=== PATIENT | male | born 1950 | race Caucasian/White ===

== ENCOUNTER → 2017-10-07 09:08 | Outpatient (CLI) | payer OTHER | END | disposition home or self-care (01) | LOC: D.CT 09:08 | DX: I73.9 Peripheral vascular disease, unspecified (principal) ==

== ENCOUNTER 2017-12-30 05:41 | Outpatient (CLI) | payer OTHER ==
[~2017-12-30] VITALS: Ht 175.3 cm; Wt 95.0 kg
--- NOTE | ~2017-12-30 | HEMODYNAMI ---
PATIENT:GERARDO MORALEZ MEDICAL RECORD: [id number] : 50 [id number] ADMISSION DATE: 12/30/17 Generatedon:12/30/201716:10 Patient name: GERARDO MORALEZ Patient #: [id number] SSN: : 1950 Date of study: 12/30/2017 Page: Of Hemodynamic Procedure Report Patient Data Patient Demographics Procedure consent was obtained First Name: GERARDO Gender: Male Last Name: KIRT : 1950 Patient #: [id number] Age: 67 year(s) Race: Unknown Additional ID: [id number] Contact details Address: [address] [place] [address] State: [place] City: [place] Zip code: [address] Past Medical History Allergies Allergen Reaction Date Comments Reported Other allergy 12/30/2017 Kai Inhipitors Admission Admission Data Admission Date: 12/30/2017 Admission Time: 5:41 Procedure Procedure Types Cath Procedure Peripheral Cath Diagnostic Procedure Miscellaneous Procedure Description Procedure Date Procedure Date: 12/30/2017 Procedure Start Time: 8:50 Procedure Staff Name Function Farhad Macario RT Monitor Brendon Ortega MD Performing Physician Chantel Pereira Scrub Taylor Barton RN Nurse Procedure Data Cath Procedure Fluoroscopy Diagnostic fluoroscopy Total fluoroscopy Time: time: 40.4 min 40.4 min Diagnostic fluoroscopy Total fluoroscopy dose: dose: 2298.8 mGy 2298.8 mGy Contrast Material Contrast Material Type Amount (ml) Isovue 300 225 Entry Location Entry Primary Successful Side Size Upsize Upsize Entry Closure Succes sful Closure Location (Fr) 1 (Fr) 2 (Fr) Remarks Device Remarks Femoral Right 5 Fr Exoseal artery Diagnostic catheters Device Type Used For End Catheter Placement Angiodynamics SOS OMNI 2 NON B 5FR 65CM catheter ([id number]) Merit ULTRA BOLUS FLUSH 5Fr 65CM catheter ([id number]) Merit 5Fr Mikaless catheter ([id number]) Procedure Medications Medication Administration Route Dosage Oxygen etCO2 Nasal cannula 4 l/min Lidocaine 1% added to field 20 Heparin Flush Bag added to field 3 bags (1000units/500ml NS) Versed I.V. 2 mg Fentanyl I.V. 50 mcg Fentanyl I.V. 50 mcg Versed I.V. 1 mg Fentanyl I.V. 50 mcg Versed I.V. 1 mg Fentanyl I.V. 50 mcg Versed I.V. 1 mg Fentanyl I.V. 50 mcg Hemodynamics Rest Heart Rate: 58 (bpm) Snapshots Pre Cath Intra NCS Post Cath Vital Signs Time Heart Resp SPO2 etCO2 NIBP (mmHg) Rhythm Pain Sedation Rate (ipm) (%) (mmHg) Status Level (bpm) 8:27:15 53 8 36.1 161/83(137) SB 0 (11) 10(A) , No pain 8:31:31 55 12 97 39.8 152/84(140) SB 0 (11) 9(A) , No pain 8:35:49 52 17 98 33.1 152/88(135) SB 0 (11) 9(A) , No pain 8:40:07 56 14 98 34.6 151/82(133) SB 0 (11) 9(A) , No pain 8:44:25 54 14 98 30.8 157/80(134) SB 0 (11) 9(A) , No pain 8:48:45 56 14 98 36.1 149/81(133) SB 0 (11) 9(A) , No pain 8:53:04 59 15 98 39.1 152/81(130) SB 0 (11) 8(A) , No pain 8:57:18 60 9 98 38.3 163/95(133) NSR 0 (11) 8(A) , No pain 9:01:36 59 9 97 35.3 156/82(133) SB 0 (11) 8(A) , No pain 9:06:33 57 9 98 43.6 155/85(134) SB 0 (11) 8(A) , No pain 9:10:47 58 98 45.1 148/81(130) SB 0 (11) 8(A) , No pain 9:15:05 64 8 98 39.8 151/85(126) NSR 0 (11) 8(A) , No pain 9:19:23 64 10 94 39.1 150/89(124) NSR 0 (11) 8(A) , No pain 9:23:41 55 9 96 28.6 151/85(125) SB 0 (11) 8(A) , No pain 9:27:53 56 7 99 45.1 133/73(112) SB 0 (11) 8(A) , No pain 9:32:07 60 12 98 43.6 139/76(119) NSR 0 (11) 8(A) , No pain 9:36:19 59 14 96 36.8 134/77(113) SB 0 (11) 8(A) , No pain 9:40:31 64 9 97 47.4 139/77(128) NSR 0 (11) 8(A) , No pain 9:44:45 56 8 97 40.6 154/87(130) SB 0 (11) 8(A) , No pain 9:49:03 57 8 99 42.9 149/84(126) SB 0 (11) 8(A) , No pain 9:53:21 53 9 99 40.6 157/86(125) SB 0 (11) 8(A) , No pain 9:57:37 54 8 99 39.1 151/91(138) SB 0 (11) 8(A) , No pain 10:01:55 54 9 99 43.6 158/85(138) SB 0 (11) 8(A) , No pain 10:06:54 53 9 99 38.3 159/89(136) SB 0 (11) 8(A) , No pain 10:11:14 55 10 98 27.1 153/83(136) SB 0 (11) 8(A) , No pain 10:16:13 53 10 98 40.6 Measuring SB 0 (11) 8(A) , No pain 10:16:17 55 10 98 40.6 155/84(128) SB 0 (11) 8(A) , No pain 10:21:16 54 16 99 33.9 Measuring SB 0 (11) 8(A) , No pain 10:21:28 59 17 98 33.9 152/80(142) SB 0 (11) 8(A) , No pain 10:25:45 54 10 100 39.9 146/82(125) SB 0 (11) 8(A) , No pain 10:30:03 54 7 99 39.8 149/71(130) SB 0 (11) 8(A) , No pain 10:34:21 53 10 97 36.1 159/76(136) SB 0 (11) 8(A) , No pain 10:39:20 54 12 99 33.9 Measuring SB 0 (11) 8(A) , No pain 10:39:30 58 8 98 0 142/75(131) SB 0 (11) 8(A) , No pain 10:43:44 55 6 96 19.5 158/89(110) SB 0 (11) 8(A) , No pain 10:48:43 53 5 93 0 Measuring SB 0 (11) 8(A) , No pain 10:48:55 54 5 95 0 156/90(149) SB 0 (11) 8(A) , No pain 10:53:16 55 6 95 0 147/76(127) SB 0 (11) 8(A) , No pain 10:58:15 56 7 96 0 Measuring SB 0 (11) 8(A) , No pain 10:59:22 53 9 97 28.6 150/83(131) SB 0 (11) 8(A) , No pain 11:04:21 49 7 94 36.8 Measuring SB 0 (11) 8(A) , No pain 11:04:27 49 6 96 36.8 166/89(133) SB 0 (11) 8(A) , No pain 11:08:52 56 8 97 42.9 155/85(144) SB 0 (11) 8(A) , No pain 11:13:12 51 7 98 42.1 155/85(138) SB 0 (11) 8(A) , No pain Medications Time Medication Route Dose Verified Delivered Reason Notes Effec tiveness by by 8:28:57 Oxygen etCO2 4 Brendon Vazquez Per Nasal l/min Mick Otrega RN protocol cannula 8:29:11 Lidocaine 1% added 20ml Brendon Olivas Per to vial Jordan Ortega MD protocol field REYEZ 8:29:28 Heparin Flush added 3 Brendon Olivas Per Bag to bags Jordan Ortega MD protocol (1000units/500ml field REYEZ NS) 8:50:41 Versed I.V. 2 mg Brendon Vazquez for Fully awake @ Mick Ortega RN sedation 8:56:58 8:50:51 Fentanyl I.V. 50 Brendon Jamesine for Fully awake @ ronna Mick Ortega RN sedation 8:57:01 8:56:55 Fentanyl I.V. 50 Brendon Vazquez for Mostl y ronna Mick Ortega RN sedation sleeping @ 8:59:50 9:18:37 Versed I.V. 1 mg Brendon Vazquez for Sedat ed @ Mick Ortega RN sedation 9:24:08 9:18:45 Fentanyl I.V. 50 Brendon Vazquez for Sedat ed @ Mick Arboleda RN sedation 9:24:05 9:34:13 Versed I.V. 1 mg Brendon Jamesine for Mostl y Mick Ortega RN sedation sleeping @ 9:39:43 9:34:24 Fentanyl I.V. 50 Brendon Jamesine for Mostl y Mick Arboleda RN sedation sleeping @ MD 9:39:40 10:31:50 Versed I.V. 1 mg Brendon Vazquez for Sedat ed @ Mick Ortega RN sedation 10:54:00 10:31:57 Fentanyl I.V. 50 Brendon Jamesine for Sedat ed @ Mick Arboleda RN sedation 10:53:57 Procedure Log Time Note 8:01:58 Farhad Macario RT (R) (CV) sent for patient. Start room use. 8:02:18 Time tracking: Regular hours (M-F 7:00 - 5:00) 8:02:24 Plan of Care:Hemodynamics will remain stable., Cardiac rhythm will remain stable., Comfort level will be maintained., Respiratory function will remain adequate., Patient/ family verbilizes understanding of procedure., Procedure tolerated without complication., Recovers from procedure without complications.. 8:02:34 Patient received from Outpatients to IR Alert and oriented. Tansferred to table in Supine position. 8:02:36 Correct patient and procedure confirmed by team. 8:02:38 Signed procedure consent form obtained from patient. 8:02:39 ECG and BP/O2 sat monitors applied to patient. 8:02:40 Full Disclosure recording started 8:02:43 - 8:02:45 H&P Date Dictated: 12/30/2017 H&P Addendum completed by physician on day of procedure. (MUST COMPLETE FOR ALL OUTPATIENTS). 8:02:46 Pre-procedure instructions explained to patient. 8:02:47 Pre-op teaching completed and patient verbalized understanding. 8:02:52 Family in waiting room. 8:02:54 Patient NPO since Midnight. 8:03:21 Patient allergic to Other allergyAce Inhipitors 8:03:31 Is the patient allergic to Iodine/contrast media? No. 8:03:46 Is patient on blood thinner?No 8:03:53 Patient diabetic? No. 8:03:56 - 8:03:57 ----Pre-sedation anethsthesia assessment.---- 8:03:59 Previous problem with sedation/anesthesia? No ? 8:04:01 Snore? Yes 8:04:03 Sleep apnea? No 8:04:06 Deviated septum? No 8:04:09 Opens mouth fully? Yes 8:04:12 Sticks out tongue? Yes 8:04:17 Airway obstruction? No ? 8:04:19 Dentures? No ? 8:26:15 Vital chart was started 8:28:57 Oxygen 4 l/min etCO2 Nasal cannula was administered by Taylor Barton RN; Per protocol; 8:29:11 Lidocaine 1% 20ml vial added to field was administered by Brendon Ortega MD; Per protocol; 8:29:28 Heparin Flush Bag (1000units/500ml NS) 3 bags added to field was administered by Brendon Ortega MD; Per protocol; 8:42:24 Pre procedure: right dorsailis pedis pulse Doppler 8:42:28 Pre procedure: left dorsailis pedis pulse Doppler 8:42:33 Pre procedure: right posterior tibial pulse Doppler 8:42:36 Pre procedure: left posterior tibial pulse Doppler 8:43:19 Patient pain scale 0/10 no pain. 8:43:36 IV patent on arrival in right forearm with 0.9% NaCl at [facility]. 8:43:39 Alarms reviewed by RPhilip N. 8:43:39 Sharps counted by scrub and verified by R.N. 8:48:21 Physician arrived 8:48:22 --------ALL STOP TIME OUT------ 8:48:23 Final Timeout: patient, procedure, and site verified with staff and physician. All members of the team are in agreement. 8:48:26 Left groin site verified by team. 8:49:03 Sedation plan: IV Moderate Sedation Medication:Versed, Fentanyl 8:49:50 Baseline sample Acquired. 8:50:10 Local anesthetic to left femerol artery with Lidocaine 1% by Brendon Ortega MD.INITIAL ACCESS ONLY 8:50:41 Versed 2 mg I.V. was administered by Taylor Barton RN; for sedation; 8:50:51 Fentanyl 50 mcg I.V. was administered by Taylor Barton RN; for sedation; 8:56:55 Fentanyl 50 mcg I.V. was administered by Taylor Barton RN; for sedation; 8:56:58 Effectiveness of Versed delivered @ 8:50:41 is: Fully awake 8:57:01 Effectiveness of Fentanyl delivered @ 8:50:51 is: Fully awake 8:57:49 A AngiodynamFresco Microchip SOS OMNI 2 NON B 5FR 65CM catheter ([id number]) was advanced over the wire and used for . 8:57:50 SHEATH 5FR Palacios (NOZ311) opened to sterile field. 8:57:51 DOC .035 wire (K03455) opened to sterile field. 8:57:51 Micropuncture VSI 4FR kit opened to sterile field. 8:58:04 A 5 Fr sheath was inserted into the Right Femoral artery 8:59:50 Effectiveness of Fentanyl delivered @ 8:56:55 is: Mostly sleeping 9:06:50 A [employer] ULTRA BOLUS FLUSH 5Fr 65CM catheter ([id number]) was advanced over the wire and used for . 9:18:37 Versed 1 mg I.V. was administered by Taylor Mick RN; for sedation; 9:18:45 Fentanyl 50 mcg I.V. was administered by Taylor Barton RN; for sedation; 9:21:17 GLIDE CATHETER 5FR COBRA 65cm (CG502) opened to sterile field. 9:21:48 GLIDE WIRE ANGLE 180cm (KU4072) opened to sterile field. 9:21:48 TORQUE DEVICE PLASTIC .038 ( TD01) opened to sterile field. 9:24:05 Effectiveness of Fentanyl delivered @ 9:18:45 is: Sedated 9:24:08 Effectiveness of Versed delivered @ 9:18:37 is: Sedated 9:28:10 A Merit 5Fr Mikaless catheter ([id number]) was advanced over the wire and used for . 9:34:13 Versed 1 mg I.V. was administered by Taylor Barton RN; for sedation; 9:34:24 Fentanyl 50 mcg I.V. was administered by Taylor Barton RN; for sedation; 9:34:44 GLIDE CATHETER 5FR AGARWAL 2 100cm (CG511) opened to sterile field. 9:39:40 Effectiveness of Fentanyl delivered @ 9:34:24 is: Mostly sleeping 9:39:43 Effectiveness of Versed delivered @ 9:34:13 is: Mostly sleeping 9:41:37 Angiodynamics Omniflush 5Fr 65cm ([id number]) opened to sterile field. 9:46:35 GLIDE CATHETER 5FR ANGLED 65cm (CG507) opened to sterile field. 10:31:50 Versed 1 mg I.V. was administered by Taylor Barton RN; for sedation; 10:31:57 Fentanyl 50 mcg I.V. was administered by Taylor Barton RN; for sedation; 10:44:40 FAMILY UPDATE 10:44:58 GLIDE WIRE GT DOUBLE ANGLE .018 ([id number]) opened to sterile field. 10:44:58 RENEGADE STAIGHT 150CM microcatheter ([id number]) opened to sterile field. 10:53:57 Effectiveness of Fentanyl delivered @ 10:31:57 is: Sedated 10:54:00 Effectiveness of Versed delivered @ 10:31:50 is: Sedated 10:58:33 EXOSEAL 5Fr (EX500) opened to sterile field. 11:00:18 Sheath removed intact; hemostasis achieved with Exoseal to the Right Femoral artery. 11:00:24 Procedure ended.(Physican Out) 11:00:28 Contrast amount:Isovue 300 225ml. 11:01:26 Fluoroscopy time 40.40 minutes. 11::33 Flurop Dose total: 2298.8 11::33 Fluoroscopy dose: 2298.8 mGy 11:01:36 Sharps counted by scrub and verified by R.N. 11:01:39 Insertion/operative site no bleeding no hematoma. 11:01:44 Post-op/insertion site Left Femoral artery dressed using a 4 x 4 and Tegaderm. 11:02:01 Post left femerol artery:stable 11:02:04 Post Procedure Pulses reassessed and unchanged 11:16:38 Post procedure instruction explained to patient.Patient verbalizes understanding. 11:16:39 Procedure and supply charges have been captured, reviewed, submitted an d are correct. 11:17:03 Report given to Outpatients. 11:17:12 Patient transfered to Outpatients with Stretcher. 11:17:48 Vital chart was stopped 11:17:53 Full Disclosure recording stopped Device Usage Item Name Manufacture Quantity Catalog Number Hospital Part Current M inimal Lot# / Charge Number Stock Stock Serial# Code Angiodynamics Angiodynamics 1 [id number] 970047 11356 066136 5 SOS OMNI 2 NON B 5FR 65CM catheter ([id number]) SHEATH 5FR Terumo 1 [id number] 082894 084637 225075 4 0 Palacios (VFQ533) Micropuncture VSI VASCULAR 1 7266V 563423 899969 5 VSI 4FR kit SOLUTIONS DOC .035 wire [employer] 1 [id number] 632113 497804 5 ([id number]) Hyper[employer]rapeutics ULTRA [employer] Medical 1 [id number] 902831 162959 5 BOLUS FLUSH 5Fr 65CM catheter ([id number]) GLIDE CATHETER Terumo 1 CG502 335228 237664 5 5FR COBRA 65cm (CG502) TORQUE DEVICE Farson 1 TD01 944175 016677 479720 5 PLASTIC .038 ( Scientific TD01) GLIDE WIRE Terumo 1 YK8706 655943 036543 249951 5 ANGLE 180cm (VK3336) Merit 5Fr [employer] Medical 1 763874 682441 408868 5 Mikaless catheter (564479) GLIDE CATHETER Terumo 1 CG511 259310 300798 5 5FR AGARWAL 2 100cm (CG511) Angiodynamics Angiodynamics 1 [id number] 502833 512576 976801 5 Omniflush 5Fr 65cm (28690346) GLIDE CATHETER Terumo 1 CG507 011752 686778 5 5FR ANGLED 65cm (CG507) RENEGADE Farson 1 [id number] 596205 103678 5 [id number] STAIGHT 150CM Scientific microcatheter ([id number]) GLIDE WIRE GT Terumo 1 [id number] 729604 979797 5 549559 DOUBLE ANGLE .018 (RG*[id number]) EXOSEAL 5Fr Cardinal 1 EX500 425713 006990 986121 1 0 [id number] (EX500) Health Signature Audit [place] Stage Time Signature Unsigned Intra-Procedure 12/30/2017 Farhad Churchield RT 11:17:44 AM Lynnetteield RT (R) (CV) 12/30/2017 (R) (CV) 4:00:14 PM Intra-Procedure 12/30/2017 Farhad 4:10:20 PM Shuffield RT (R) (CV) Signatures Monitor : Farhad Signature : Amirah RT Date : Time : [id number] [place] [address]
[2017-12-30 06:07] LABS: IMMATURE GRANULOCYTES 0.3 % (0-5)
[2017-12-30 06:19] LABS: CALC OSMOLALITY 282 mosm/kg (275-300); CALCIUM 8.5 mg/dL (8.5-10.1); CARBON DIOXIDE 25.4 mmol/L (21.0-32.0); CHLORIDE - SERUM 106 mmol/L (98-107); GLUCOSE 162 mg/dL (74-106); POTASSIUM - SERUM 4.4 mmol/L (3.5-5.1); SODIUM 140 mmol/L (136-145); UREA NITROGEN 13 mg/dL (7-18); eGFR NON AFRICAN AMERICAN 79 mL/min (90-120)
[2017-12-30] MEDS ORDERED: BAYER CHEWABLE81 MG PO (06:34)
[2017-12-30] MEDS ORDERED: ALEVE220 MG PO (06:35)
[2017-12-30] MEDS ORDERED: CENTRUM SILVER1 EACH PO (06:35)
[2017-12-30 06:36] LABS: APTT 31.3 SECONDS (22.8-39.4)
[2017-12-30] MEDS ORDERED: PRAVACHOL40 MG PO (06:36)
[2017-12-30] MEDS ORDERED: FISH OIL 1,0001 CA1 PO (06:36)
[2017-12-30 06:37] LABS: INR 0.91 (0.85-1.17); PROTIME 11.9 SECONDS (11.6-15.0)
[2017-12-30] MEDS ORDERED: TOPROL XL25 MG (06:37)
[2017-12-30] MEDS ORDERED: LISINOPRIL10 MG PO (06:38)
[2017-12-30] MEDS ORDERED: NORVASC10 MG PO (06:38)
[2017-12-30 06:51] VITALS: Ht 175.3 cm; Wt 95.0 kg
[2017-12-30 07:17] LABS: MEAN PLATELET VOLUME 9.5 fL (7.4-10.4)
[2017-12-30 07:22] LABS: HEMATOCRIT 40.6 % (42.0-54.0); MCV 87.9 fL (80.0-100.0); RBC 4.62 10x6/uL (4.20-6.10)
[2017-12-30 07:23] LABS: MCH 30.3 pg (26.0-34.0); MCHC 34.5 g/dL (31.0-37.0); PLATELET COUNT 256 10x3/uL (130-400); RDW 13.1 % (11.5-14.5)
[2017-12-30 07:24] LABS: EOSINOPHILS 5.5 % (0-7); LYMPHOCYTES 24.3 % (15-50); MONOCYTES 9.4 % (2-11); NEUTROPHILS 59.7 % (40-80)
== END 2017-12-30 15:30 | disposition home or self-care (01) ==
LOC: D.SP 05:41 → D.RAD 08:00 → D.SP 15:30
PROVIDERS: General Practice
DX: I71.4 Abdominal aortic aneurysm, without rupture (principal); K55.1 Chronic vascular disorders of intestine; I70.201 Unspecified atherosclerosis of native arteries of extremities, right leg; Z01.812 Encounter for preprocedural laboratory examination

== ENCOUNTER 2018-01-14 05:34 | Outpatient (CLI) | payer OTHER ==
[~2018-01-14] VITALS: Ht 175.3 cm; Wt 94.1 kg
--- NOTE | ~2018-01-14 | HEMODYNAMI ---
PATIENT:GERARDO MORALEZ MEDICAL RECORD: [id number] : 50 [id number] ADMISSION DATE: 01/14/18 Generatedon:01/14/201810:18 Patient name: GERARDO MORALEZ Patient #: [id number] SSN: : 1950 Date of study: 01/14/2018 Page: Of Hemodynamic Procedure Report Patient Data Patient Demographics Procedure consent was obtained First Name: GERRADO Gender: Male Last Name: KIRT : 1950 Patient #: [id number] Age: 67 year(s) Race: Unknown Additional ID: [id number] Contact details [address]: [address] [place] [address] State: [place] City: [place] Zip code: [address] Past Medical History Allergies Allergen Reaction Date Comments Reported Other allergy 12/30/2017 Kai Inhipitors Other allergy 01/14/2018 kai inhibitors Other allergy 01/14/2018 KAI INHIBITORS Admission Admission Data Admission Date: 01/14/2018 Admission Time: 5:34 Procedure Procedure Types Cath Procedure Peripheral Cath Diagnostic Procedure Abd/Extremity Extremities Procedure Description Procedure Date Procedure Date: 01/14/2018 Procedure Start Time: 8:45 Procedure Staff Name Function Brendon Ortega MD Performing Physician Farhad Macario RT Monitor Chantel Pereira Scrub Mili Miller RN Nurse Taylor Barton RN Nurse Procedure Data Cath Procedure Fluoroscopy Diagnostic fluoroscopy Total fluoroscopy Time: 8.1 time: 8.1 min min Diagnostic fluoroscopy Total fluoroscopy dose: 672 dose: 672 mGy mGy Contrast Material Contrast Material Type Amount (ml) Isovue 300 120 Entry Location Entry Primary Successful Side Size Upsize Upsize Entry Closure Succes sful Closure Location (Fr) 1 (Fr) 2 (Fr) Remarks Device Remarks Femoral Left 5 Fr artery Procedure Medications Medication Administration Route Dosage Oxygen etCO2 Nasal cannula 4 l/min Heparin Flush Bag added to field 3 bags (1000units/500ml NS) Lidocaine 1% added to field 20 Fentanyl I.V. 50 mcg Versed I.V. 2 mg Fentanyl I.V. 50 mcg Versed I.V. 1 mg Fentanyl I.V. 50 mcg Heparin Bolus I.V. 5000 units Versed I.V. 1 mg Fentanyl I.V. 50 mcg Hemodynamics Rest Heart Rate: 57 (bpm) Snapshots Pre Cath Intra NCS Post Cath Vital Signs Time Heart Resp SPO2 etCO2 NIBP (mmHg) Rhythm Pain Sedation Rate (ipm) (%) (mmHg) Status Level (bpm) 8:17:56 55 99 35.3 135/76(130) SB 0 (11) 10(A) , No pain 8:22:55 58 11 99 35.3 Measuring SB 0 (11) 9(A) , No pain 8:23:05 57 14 99 37.6 147/73(128) SB 0 (11) 9(A) , No pain 8:27:27 54 14 99 35.3 153/79(127) SB 0 (11) 9(A) , No pain 8:31:47 55 15 100 32.3 157/83(137) SB 0 (11) 9(A) , No pain 8:36:14 57 15 100 36.1 160/84(138) SB 0 (11) 9(A) , No pain 8:40:36 57 14 99 29.3 158/83(130) SB 0 (11) 9(A) , No pain 8:44:54 60 8 100 37.6 151/80(125) NSR 0 (11) 8(A) , No pain 8:49:14 68 11 98 38.3 151/87(122) NSR 0 (11) 8(A) , No pain 8:53:34 57 9 97 39.8 158/89(130) SB 0 (11) 8(A) , No pain 8:58:07 60 21 98 39.1 156/75(129) NSR 0 (11) 8(A) , No pain 9:02:29 53 21 97 39.1 156/79(127) SB 0 (11) 8(A) , No pain 9:06:51 57 7 97 42.9 158/83(119) SB 0 (11) 8(A) , No pain 9:11:19 62 8 95 33.8 152/79(107) NSR 0 (11) 8(A) , No pain 9:15:39 57 8 97 44.4 148/89(134) SB 0 (11) 8(A) , No pain 9:20:01 60 9 97 30 157/86(128) NSR 0 (11) 8(A) , No pain 9:25:01 61 10 99 40.6 Measuring NSR 0 (11) 8(A) , No pain 9:25:17 58 10 99 38.4 156/91(130) SB 0 (11) 8(A) , No pain 9:29:35 54 8 99 40.6 163/96(138) SB 0 (11) 8(A) , No pain 9:34:01 53 7 100 41.4 170/88(133) SB 0 (11) 8(A) , No pain 9:38:27 54 10 99 42.2 167/91(135) SB 0 (11) 8(A) , No pain 9:42:56 55 9 100 39.2 170/89(148) SB 0 (11) 8(A) , No pain 9:47:08 55 10 98 38.4 146/83(129) SB 0 (11) 8(A) , No pain 9:51:28 54 10 99 38.4 160/82(128) SB 0 (11) 8(A) , No pain 9:55:56 53 9 100 35.4 166/74(107) SB 0 (11) 8(A) , No pain 10:00:16 53 11 99 36.2 156/86(134) SB 0 (11) 8(A) , No pain 10:05:15 53 9 100 36.2 Measuring SB 0 (11) 8(A) , No pain 10:05:19 53 8 100 36.2 157/92(133) SB 0 (11) 8(A) , No pain 10:09:42 54 12 98 34.6 161/93(146) SB 0 (11) 8(A) , No pain 10:14:06 54 13 96 36.2 163/84(148) SB 0 (11) 8(A) , No pain Medications Time Medication Route Dose Verified Delivered Reason Notes Effec tiveness by by 8:21:31 Oxygen etCO2 4 Brendon Vazquez Per Nasal l/min Mick Ortega RN protocol cannula 8:21:49 Heparin Flush added 3 Brendon Olivas used for Bag to bags Jordan Ortega MD procedure (1000units/500ml field REYEZ NS) 8:22:02 Lidocaine 1% added 20ml Brendon Brendon used for to vial Jordan Ortega MD procedure field REYEZ 8:43:27 Fentanyl I.V. 50 Brendon Vazquez for Dozin g Mick Arboleda RN sedation intermittently MD @ 8:48:15 8:43:41 Versed I.V. 2 mg Brendon Vazquez for Dozin g Mick Ortega RN sedation intermittently MD @ 8:48:18 8:48:11 Fentanyl I.V. 50 Brendon Vazquez for Dozin g Mick Arboleda RN sedation intermittently MD @ 9:00:07 8:59:55 Versed I.V. 1 mg Brendon Vazquez for Mostl y Mick Ortega RN sedation sleeping @ 9:03:57 9:00:02 Fentanyl I.V. 50 Brendon Vazquez for Mostl y Mick Arboleda RN sedation sleeping @ 9:03:54 9:18:55 Heparin Bolus I.V. 5000 Brendon Jamesine Per units Mick Ortega RN protocol MD 9:42:29 Versed I.V. 1 mg Brendon Vazquez for Mostl y Mick Ortega RN sedation sleeping @ 9:55:15 9:42:36 Fentanyl I.V. 50 Brendon Vazquez for Mostl y Mick Arboleda RN sedation sleeping @ 9:55:12 Procedure Log Time Note 8:12:40 Farhad Macario RT (R) (CV) sent for patient. Start room use. 8:12:55 Time tracking: Regular hours (M-F 7:00 - 5:00) 8:12:59 Plan of Care:Hemodynamics will remain stable., Cardiac rhythm will remain stable., Comfort level will be maintained., Respiratory function will remain adequate., Patient/ family verbilizes understanding of procedure., Procedure tolerated without complication., Recovers from procedure without complications.. 8:13:26 Patient received from Outpatients to IR Alert and oriented. Tansferred to table in Supine position. 8:13:27 Correct patient and procedure confirmed by team. 8:13:29 Signed procedure consent form obtained from patient. 8:13:30 ECG and BP/O2 sat monitors applied to patient. 8:13:31 Full Disclosure recording started 8:13:32 - 8:13:37 H&P Date Dictated: 01/14/2018 H&P Addendum completed by physician venus da y of procedure. (MUST COMPLETE FOR ALL OUTPATIENTS). 8:13:38 Pre-procedure instructions explained to patient. 8:13:38 Pre-op teaching completed and patient verbalized understanding. 8:13:40 Family in waiting room. 8:13:42 Patient NPO since Midnight. 8:14:06 Patient allergic to Other allergyace inhibitors 8:14:30 Patient allergic to Other allergyACE INHIBITORS 8:14:38 Is the patient allergic to Iodine/contrast media? No. 8:14:40 Is patient on blood thinner?Yes 8:14:43 ACC The patient was administered the following blood thiners within the last 24 hours: ACCAspirin 8:15:13 Patient diabetic? No. 8:15:15 - 8:15:15 ----Pre-sedation anethsthesia assessment.---- 8:15:19 Previous problem with sedation/anesthesia? No ? 8:15:22 Snore? Yes 8:15:24 Sleep apnea? No 8:15:26 Deviated septum? No 8:15:29 Opens mouth fully? Yes 8:15:30 Sticks out tongue? Yes 8:15:35 Airway obstruction? No ? 8:15:37 Dentures? No ? 8:15:44 Use device set IR Diagnostic 8:15:45 ACIST Syringe (03707) opened to sterile field. 8:15:45 ACIST Hand Control (84528) opened to sterile field. 8:15:45 ACIST Manifold (46424) opened to sterile field. 8:15:46 Bag Decanter (2002S) opened to sterile field. 8:15:46 Sterile Angiographic Pack opened to sterile field. 8:15:49 Tegaderm 4 x 4 (1626W) opened to sterile field. 8:16:47 Vital chart was started 8:19:55 Baseline sample Acquired. 8:21:31 Oxygen 4 l/min etCO2 Nasal cannula was administered by Taylor Barton RN; Per protocol; 8:21:49 Heparin Flush Bag (1000units/500ml NS) 3 bags added to field was administered by Brendon Ortega MD; used for procedure; 8:22:02 Lidocaine 1% 20ml vial added to field was administered by Brendon Ortega MD; used for procedure; 8:34:25 Pre procedure: right dorsailis pedis pulse Doppler 8:34:28 Pre procedure: left dorsailis pedis pulse Doppler 8:34:30 Pre procedure: right posterior tibial pulse Doppler 8:34:33 Pre procedure: left posterior tibial pulse Doppler 8:34:42 Patient pain scale 0/10 NO PAIN\. 8:34:43 Alarms reviewed by R. N. 8:34:44 Sharps counted by scrub and verified by R.N. 8:34:49 Left groin area was prepped with chlora-prep and draped in sterile fashion 8:34:55 IV patent on arrival in left hand with 0.9% NaCl at [facility]. 8:41:35 Physician arrived 8:41:36 --------ALL STOP TIME OUT------ 8:41:37 Final Timeout: patient, procedure, and site verified with staff and physician. All members of the team are in agreement. 8:41:39 Left groin site verified by team. 8:41:44 Sedation plan: IV Moderate Sedation Medication:Versed, Fentanyl 8:43:27 Fentanyl 50 mcg I.V. was administered by Taylor Barton RN; for sedation; 8:43:41 Versed 2 mg I.V. was administered by Taylor Barton RN; for sedation; 8:45:02 Procedure started. 8:45:11 Local anesthetic to left femerol artery with Lidocaine 1% by Brendon Ortega MD.INITIAL ACCESS ONLY 8:45:13 SHEATH 5FR [place] (WZK523) opened to sterile field. 8:45:14 Micropuncture VSI 4FR kit opened to sterile field. 8:45:14 DOC .035 wire (Z65035) opened to sterile field. 8:45:14 TUBING Contrast Injection High Pressure (KEV869R) opened to sterile field. 8:45:15 MASON 260 wire (S23853) opened to sterile field. 8:45:15 SHEATH 6FR Destination (RSR01) opened to sterile field. 8:45:16 INFLATOR BasixTOUCH (BO8037) opened to sterile field. 8:45:16 Angiodynamics Omniflush 5Fr 65cm (81487891) opened to sterile field. 8:45:22 Access obtained with 4Fr micropunture. 8:45:35 A 5 Fr sheath was inserted into the Left Femoral artery 8:48:11 Fentanyl 50 mcg I.V. was administered by Taylor Barton RN; for sedation; 8:48:15 Effectiveness of Fentanyl delivered @ 8:43:27 is: Dozing intermittently 8:48:18 Effectiveness of Versed delivered @ 8:43:41 is: Dozing intermittently 8:51:42 Cordis 5Fr [place] Destination sheath opened to sterile field. 8:59:12 GLIDE WIRE ANGLE 180cm (PH9484) opened to sterile field. 8:59:55 Versed 1 mg I.V. was administered by Taylor Barton RN; for sedation; 9:00:02 Fentanyl 50 mcg I.V. was administered by Taylor Barton RN; for sedation; 9:00:07 Effectiveness of Fentanyl delivered @ 8:48:11 is: Dozing intermittently 9:00:07 TORQUE DEVICE PLASTIC .038 ( TD01) opened to sterile field. 9:01:28 GLIDE CATHETER 5FR ANGLED 65cm (CG507) opened to sterile field. 9:03:54 Effectiveness of Fentanyl delivered @ 9:00:02 is: Mostly sleeping 9:03:57 Effectiveness of Versed delivered @ 8:59:55 is: Mostly sleeping 9:12:06 CHOICE PT Extra Support J 300cm guide wire ([id number]) opened to steril e field. 9:14:53 Trailblazer 0.035 135cm catheter ([id number]) opened to sterile field. 9:17:13 GLIDE WIRE MERIT Angled 260cm ([id number]) opened to sterile field. 9:18:55 Heparin Bolus 5000 units I.V. was administered by Taylor Barton RN; Per protocol; 9:32:06 Inflate balloon Inflation number: 1 A CHOCOLATE 3.0 x 120 x 150 balloon ([id number]) was prepped and advanced across the Undefined1, then inflated to 12 LEO for 2:38 (min:sec). 9:36:25 Inflation number: 2 The CHOCOLATE 3.0 x 120 x 150 balloon ([id number]) was reinflated across the Undefined1, to 12 LEO for 1:22 (min:sec). 9:42:29 Versed 1 mg I.V. was administered by Taylor Barton RN; for sedation; 9:42:36 Fentanyl 50 mcg I.V. was administered by Taylor Barton RN; for sedation; 9:49:20 SHEATH 5FR [place] (UUS338) opened to sterile field. 9:54:53 FAMILY UPDATE 9:55:12 Effectiveness of Fentanyl delivered @ 9:42:36 is: Mostly sleeping 9:55:15 Effectiveness of Versed delivered @ 9:42:29 is: Mostly sleeping 9:58:38 Inflate balloon Inflation number: 3 A CHOCOLATE 3.0 x 40 x 150 balloon ([id number]) was prepped and advanced across the Undefined1, then inflated to 12 LEO for 2:05 (min:sec). 10:03:05 EXOSEAL 5Fr (EX500) opened to sterile field. 10:06:32 Procedure ended.(Physican Out) 10:07:21 Fluoroscopy time 08.10 minutes. 10:07:29 Fluoroscopy dose: 672 mGy 10:07:29 Flurop Dose total: 672 10:07:32 Sharps counted by scrub and verified by R.N. 10:07:34 Insertion/operative site no bleeding no hematoma. 10:07:38 Post-op/insertion site Left Femoral artery dressed using a 4 x 4 and Tegaderm. 10:07:40 Post Procedure Pulses reassessed and unchanged 10:07:45 Post procedure instruction explained to patient.Patient verbalizes understanding. 10:07:46 Procedure and supply charges have been captured, reviewed, submitted an d are correct. 10:09:50 Contrast amount:Isovue 300 120ml. 10:17:28 Report given to Outpatients. 10:17:31 Patient transfered to Outpatients with Bed. 10:18:08 Vital chart was stopped Intervention Summary Intervention Notes Time ActionType Lesion and Equipment Used Action# Pressure Duration Attributes 9:32:06 Inflate Undefined1 CHOCOLATE 3.0 x 1 12 02:38 balloon 120 x 150 balloon ([id number]) 9:36:25 Reinflate Undefined1 CHOCOLATE 3.0 x 2 12 01:22 balloon 120 x 150 balloon ([id number]) 9:58:38 Inflate Undefined1 CHOCOLATE 3.0 x 3 12 02:05 balloon 40 x 150 balloon ([id number]) Device Usage Item Name Manufacture Quantity Catalog Number [facility] Minimal Lot# / Charge Number Stock Stock Serial# Code ACIST Syringe Acist Medical 1 42943 686228 578653 203757 20 (89918) Systems Inc ACIST Hand Acist Medical 1 82032 994508 768713 633192 5 Control (79439) Systems Inc ACIST Manifold Acist Medical 1 96686 675238 090412 958755 5 (18581) Systems Inc Bag Decanter Microtek 1 2001S 400688 23360 617044 5 (2001S) Medical Inc. Sterile Cardinal 1 [id number] 841989 885993 5 Angiographic Pack Health Tegaderm 4 x 4 3M 1 1626W 835498 728765 074746 5 (1626W) SHEATH 5FR Terumo 2 ZFV404 433595 815149 101908 40 [place] (ZAR277) Micropuncture VSI VSI VASCULAR 1 7266V 688964 035170 5 4FR kit SOLUTIONS DOC .035 wire Cook Medical 1 H16780 913739 010079 5 (S70414) TUBING Contrast [employer] 1 WFC691O 937908 242536 590330 5 Injection High Pressure (MHJ546N) MASON 260 wire Clio Medical 1 E53512 949635 28503 133187 5 (U32559) SHEATH 6FR Terumo 1 RSR01 390309 61692 334233 5 Destination (RSR01) INFLATOR [employer] 1 YY6378 197431 547007 436052 5 BasixTOUCH (XQ6852) Angiodynamics Angiodynamics 1 60812536 516640 213842 736311 5 Omniflush 5Fr 65cm (83115708) Cordis 5Fr Cardinal 1 78-06434 218019 70678 258842 5 [place] Health Destination sheath GLIDE WIRE ANGLE Terumo 1 EQ2705 312974 133175 477078 5 180cm (CA1166) TORQUE DEVICE [place] 1 TD01 119407 612941 132082 5 PLASTIC .038 ( Scientific TD01) GLIDE CATHETER Terumo 1 CG507 593072 377221 5 5FR ANGLED 65cm (CG507) CHOICE PT Extra [place] 1 [id number] 563626 043642 813831 5 [id number] Support J 300cm Scientific guide wire (0211901K2) Trailblazer 0.035 Medtronic 1 ASC-035-135 343197 63863 377369 5 135cm catheter (GUV727314) GLIDE WIRE [facility] Medical 1 [id number] 399619 408725 903844 5 [id number] Angled 260cm ([id number]) CHOCOLATE 3.0 x Cardinal 1 LE17-360-11054 709570 363725 256941 5 120 x 150 balloon Health O ([id number]) TW CHOCOLATE 3.0 x Microtek 1 LH50-654-65559 711606 125849 829127 5 40 x 150 balloon Medical Inc. O ([id number]) TW EXOSEAL 5Fr Cardinal 1 EX500 452437 122553 581072 10 [id number] (EX500) Health Signature Audit [place] Stage Time Signature Unsigned Intra-Procedure 01/14/2018 Farhad 10:18:04 AM Lynnetteield RT (R) (CV) Signatures Monitor : Farhad Signature : Amirah RT Date : Time : [place] [id number]
[~2018-01-14 05:34] MED LIST: ALEVE220 MG PO; BAYER CHEWABLE81 MG PO; CENTRUM SILVER1 EACH PO; FISH OIL 1,0001 CA1 PO; LISINOPRIL10 MG PO; NORVASC10 MG PO; PRAVACHOL40 MG PO; TOPROL XL25 MG
[2018-01-14 05:53] LABS: BASOPHILS 1.2 % (0-2); EOSINOPHILS 7.2 % (0-7); HEMATOCRIT 40.9 % (42.0-54.0); HEMOGLOBIN 13.9 g/dL (13.5-17.5); IMMATURE GRANULOCYTES 0.3 % (0-5); LYMPHOCYTES 24.4 % (15-50); MCH 30.5 pg (26.0-34.0); MCV 89.7 fL (80.0-100.0); MEAN PLATELET VOLUME 9.4 fL (7.4-10.4); MONOCYTES 9.1 % (2-11); NEUTROPHILS 57.8 % (40-80); PLATELET COUNT 289 10x3/uL (130-400); RBC 4.56 10x6/uL (4.20-6.10); RDW 13.2 % (11.5-14.5); WBC 9.6 10x3/uL (4.8-10.8)
[2018-01-14 06:02] LABS: CALC OSMOLALITY 286 mosm/kg (275-300); CALCIUM 8.7 mg/dL (8.5-10.1); CHLORIDE - SERUM 106 mmol/L (98-107); GLUCOSE 139 mg/dL (74-106); INR 0.92 (0.85-1.17); POTASSIUM - SERUM 4.1 mmol/L (3.5-5.1); SODIUM 143 mmol/L (136-145); UREA NITROGEN 12 mg/dL (7-18); eGFR NON AFRICAN AMERICAN 79 mL/min (90-120)
[2018-01-14 06:03] LABS: APTT 30.8 SECONDS (22.8-39.4)
[2018-01-14 06:50] VITALS: BP 140/71; Ht 175.3 cm; Wt 94.1 kg
== END 2018-01-14 13:30 | disposition home or self-care (01) ==
LOC: D.SP 05:34 → D.RAD 08:00 → D.SP 08:00
PROVIDERS: General Practice
DX: I70.238 Atherosclerosis of native arteries of right leg with ulceration of other part of lower leg (principal); L97.819 Non-pressure chronic ulcer of other part of right lower leg with unspecified severity; I71.4 Abdominal aortic aneurysm, without rupture; Z01.812 Encounter for preprocedural laboratory examination

== ENCOUNTER → 2018-04-19 14:09 | Outpatient (CLI) | payer OTHER ==
[2018-01-14 06:50] VITALS: BMI 30.6
[~2018-04-19 14:09] MED LIST changes: +METOPROLOL TART25 MG PO
== END | disposition home or self-care (01) ==
LOC: D.CT 14:09
DX: I71.4 Abdominal aortic aneurysm, without rupture (principal)

== ENCOUNTER 2018-05-06 08:38 | Inpatient (IN) | payer OTHER ==
[~2018-05-06] VITALS: Ht 175.3 cm; Wt 84.8 kg
[~2018-05-06 08:38] MED LIST changes: -METOPROLOL TART25 MG PO
[2018-05-06] MEDS ORDERED: METOPROLOL TART25 MG PO (09:13)
[2018-05-06 11:28] LABS: APPEARANCE CLEAR (CLEAR); BILIRUBIN NEGATIVE (NEGATIVE); COLOR YELLOW (YELLOW); GLUCOSE 50 mg/dL (NEGATIVE); KETONE NEGATIVE (NEGATIVE); NITRITE NEGATIVE (NEGATIVE); PROTEIN NEGATIVE (NEGATIVE); UROBILINOGEN NORMAL (NORMAL)
[2018-05-06 11:35] LABS: ALBUMIN 3.7 g/dL (3.4-5.0); ALKALINE PHOSPHATASE 88 U/L (46-116); ALT (SGPT) 19 U/L (10-68); BILIRUBIN - TOTAL 0.49 mg/dL (0.2-1.3); CALC OSMOLALITY 287 mosm/kg (275-300); CALCIUM 8.8 mg/dL (8.5-10.1); CARBON DIOXIDE 28.2 mmol/L (21.0-32.0); CHLORIDE - SERUM 105 mmol/L (98-107); GLUCOSE 166 mg/dL (74-106); POTASSIUM - SERUM 3.9 mmol/L (3.5-5.1); PROTEIN - SERUM 7.1 g/dL (6.4-8.2); SODIUM 142 mmol/L (136-145); UREA NITROGEN 15 mg/dL (7-18); eGFR NON AFRICAN AMERICAN 79 mL/min (90-120)
[2018-05-06 11:37] LABS: INR 0.94 (0.85-1.17); PROTIME 12.1 SECONDS (11.6-15.0)
[2018-05-06 12:01] LABS: BASOPHILS 0.5 % (0-2); EOSINOPHILS 4.9 % (0-7); HEMATOCRIT 40.8 % (42.0-54.0); HEMOGLOBIN 13.9 g/dL (13.5-17.5); IMMATURE GRANULOCYTES 0.2 % (0-5); LYMPHOCYTES 20.4 % (15-50); MCH 30.4 pg (26.0-34.0); MCHC 34.1 g/dL (31.0-37.0); MCV 89.3 fL (80.0-100.0); MEAN PLATELET VOLUME 10.1 fL (7.4-10.4); MONOCYTES 7.7 % (2-11); NEUTROPHILS 66.3 % (40-80); PLATELET COUNT 238 10x3/uL (130-400); RBC 4.57 10x6/uL (4.20-6.10); RDW 13.4 % (11.5-14.5)
[2018-05-10] VITALS (38 sets, daily range): BP systolic 110–145; BP diastolic 27–77; BMI 29.6; BMI 27.6
--- NOTE | 2018-05-10 15:10 | NUR ---
PT ARRIVED IN THE UNIT. PT HOOKED TO ICU MONITORS. VSS. SEE IV FLOW SHEET FOR GTT DETAILS. NITRO TITRATED PER ORDERS FOR HTN. PT ALERT AND ORIENTED BUT DROWSEY. PT FOLLOWING COMMANDS AND COOPERATIVE. SIMPLE MASK ON 10L. RIGHT CVL CORDIS NOTED. RIGHT ALYSSA NOTED WITH WRIST PROTECTOR ON. CAP REFILL <3 SECONDS. DRESSING C/D/I. LEFT AC IV NOTED SL. AN AG MIPLEX DRESSING NOTED TO RIGHT GROIN AND A VERY SMALL DRESSING NOTED TO LEFT GROIN. NO HEMATOMA NOTED TO GROIN. DRESSING C/D/I. FC NTOED WITH CLEAR YELLOW URINE. PT NOTED TO PT 94 DEGREES. LIT HUGGER APPLIED. RIGHT ANKLE DRESSING C/D/I. ONCE IT WAS REMOVED, AN OPEN SORE WAS NOTED WITH A PINK WOUND BED MEASUREING 3.1CM X 2.7CM X 1CM ANOTHER VERY SMALL OPEN WOUND NOTED. IT WAS NOT MEASURE DUE TO IT BEING SO SMALL. WOUNDS CLEANED WITH WOUND CLEASNER AND AN ADAPTIC DRESSING APPIED AND REIENFORED WITH 4X4'S AND TAPE. DRESSING C/D/I. BILATEARL DORALIS PEDIS AND POSTERIOR TIBAIAL PULSES DOPPLERABLE. PT DENIES PAIN. CALL LIGHT IN REACH. WILL CONT POC.
--- NOTE | 2018-05-10 15:30 | NUR ---
PT BECOMING MORE ALERT BUT STILL DROWSEY. CLEVIPREX STARTED FOR HTN. PULSES REMAIN DOPPLERABLE. WILL CONT POC.
[2018-05-10 15:53] LABS: BASOPHILS 0.3 % (0-2); EOSINOPHILS 2.3 % (0-7); HEMATOCRIT 34.4 % (42.0-54.0); HEMOGLOBIN 11.5 g/dL (13.5-17.5); IMMATURE GRANULOCYTES 0.3 % (0-5); LYMPHOCYTES 18.3 % (15-50); MCH 29.9 pg (26.0-34.0); MCHC 33.4 g/dL (31.0-37.0); MCV 89.4 fL (80.0-100.0); MEAN PLATELET VOLUME 9.4 fL (7.4-10.4); MONOCYTES 5.1 % (2-11); NEUTROPHILS 73.7 % (40-80); RBC 3.85 10x6/uL (4.20-6.10); RDW 13.4 % (11.5-14.5); WBC 11.7 10x3/uL (4.8-10.8)
[2018-05-10 16:05] LABS: PLATELET COUNT 186 10x3/uL (130-400)
--- NOTE | 2018-05-10 17:30 | NUR ---
PT TOLERATING ICE CHIPS WELL. PULSES REMAIN DOPPLERABLE. PT AT 96 DEGREES. LIT HUGGER REMAINS ON.
--- NOTE | 2018-05-10 19:20 | NUR ---
PT AWAKE AND ALERT. DENIES PAIN. O2 VIA NC 4L. R IJ CORDIS WITH CLEVEPREX, NITRO AND PLASMOLYTE INFUSING. SEE FLOWSHEET. SINUS RYTHMN PER CM. RIGHT RADIAL ALYSSA WITH GOOD WAVEFORM. ZEROED AND LEVELED. ZINACEF INFUSING TO L PIV. CRITICORE BURGOS TO GRAVITY WITH LIGHT YELLOW URINE DRAINING. BILATERAL GROIN DRSGS THAT ARE CDI. NO HEMATOMAS PRESENT. RIGHT PEDAL PULSE IS PALPABLE. LEFT PEDAL PULSE IS DOPPLERABLE. BOTH FEET ARE WARM TO TOUCH. 2 DRSGS TO SIDE OF RIGHT FOOT/ANKLE. DRSGS ARE CDI. WILL CONTINUE TO MONITOR CLOSELY.
--- NOTE | 2018-05-10 21:00 | NUR ---
PT AWAKE AND ALERT. DENIES PAIN OR NEEDS. NO CHANGES IN PULSES. ADDIEGS CDI.
--- NOTE | 2018-05-10 23:00 | NUR ---
NO CHANGE IN ASSESSMENT. PT DENIES NEEDS
[2018-05-11] VITALS (59 sets, daily range): BP systolic 110–139; BP diastolic 37–81; Ht 175.3 cm; Wt 84.8 kg
--- NOTE | 2018-05-11 01:00 | NUR ---
PULSE R FOOT IS PALPABLE, LEFT IS DOPPLERABLE WITHOUT DIFFICULTY. ALL DRSGS REMAIN CDI. DENIES PAIN.
--- NOTE | 2018-05-11 03:40 | NUR ---
NO CHANGE IN ASSESS. SEE FLOWSHEET FOR INFUSIONS.
[2018-05-11 06:18] LABS: HEMATOCRIT 31.4 % (42.0-54.0); HEMOGLOBIN 10.7 g/dL (13.5-17.5); MCH 29.8 pg (26.0-34.0); MCHC 34.1 g/dL (31.0-37.0); MCV 87.5 fL (80.0-100.0); MEAN PLATELET VOLUME 9.8 fL (7.4-10.4); RBC 3.59 10x6/uL (4.20-6.10); RDW 12.8 % (11.5-14.5); WBC 13.9 10x3/uL (4.8-10.8)
[2018-05-11 06:30] LABS: CALC OSMOLALITY 282 mosm/kg (275-300); CALCIUM 7.1 mg/dL (8.5-10.1); CARBON DIOXIDE 24.9 mmol/L (21.0-32.0); CHLORIDE - SERUM 105 mmol/L (98-107); GLUCOSE 174 mg/dL (74-106); POTASSIUM - SERUM 3.9 mmol/L (3.5-5.1); SODIUM 139 mmol/L (136-145); UREA NITROGEN 16 mg/dL (7-18); eGFR NON AFRICAN AMERICAN 79 mL/min (90-120)
--- NOTE | 2018-05-11 06:30 | NUR ---
OP TO CHAIR AT BEDSIDE. TOLERATED WELL.
--- NOTE | 2018-05-11 09:20 | NUR ---
DR RAPHAEL AT THE PTS BEDSIDE. ORDERS TO GO AHEAD AND COME OFF THE IV FLUIDS.
--- NOTE | 2018-05-11 09:26 | OP ---
PATIENT NAME: GERARDO MORALEZ MEDICAL RECORD: [id number] :50 LOCATION:D.CVI D.CV03 ADMISSION DATE:05/10/18 SURGEON: GAVINO RAPHAEL MD DATE OF OPERATION: 05/10/2018 SURGEON: Gavino Raphael MD CYBER [employer]URITY SYSTEMS ENGINEER: Madison Arora MD and Alonso Herrera. OPERATION PERFORMED: 1. Insertion of bifurcated aortic endograft. 2. Insertion of suprarenal extension. 3. Insertion of left common iliac stent. 4. Bilateral iliac angioplasty. 5. Aortogram times 4. 6. Right iliac angiogram. 7. Left iliac angiogram. PREOPERATIVE DIAGNOSES: Abdominal aortic aneurysm and bilateral iliac stenosis with peripheral vascular disease and nonhealing arterial ulcer. POSTOPERATIVE DIAGNOSES: Abdominal aortic aneurysm and bilateral iliac stenosis with peripheral vascular disease and nonhealing arterial ulcer. ANESTHESIA: General endotracheal anesthesia. ESTIMATED BLOOD LOSS: 500 cc with 250 cc Cell Saver retransfusion. COMPLICATIONS: None. SPECIMENS: None. CONDITION: Stable. DISPOSITION: CV ICU. OPERATIVE FINDINGS: 1. Pre-dilation of the right common iliac with a 7 mm balloon. 2. AFX sheath system would not passes through the right, so an 8 x 80 balloon used on the right and the sheath passed into place. 3. A 25 diameter 120, main body with 40 mm limbs. 4. A 34 x 100 suprarenal extension. 5. Right iliac angioplasty 9 x 40 balloon. 6. Primary interrupted closure, right common femoral artery. 7. Left graft limb angioplasty 9 x 40. 8. Arteriogram with good flow on the right, but irregular plaque just beyond the tip of the left limb covered with an 8 x 38 balloon expandable stent. 9. Completion of left iliac angiogram without stenosis and closure with Angio-Seal device. 10. Palpable bilateral dorsalis pedis. INDICATIONS: Abdominal aortic aneurysm, bilateral iliac stenosis, nonhealing ulcer, right lower extremity status post right lower extremity angioplasty and attempted inferior mesenteric thrombosis, current scan without inferior mesenteric patency. OPERATIVE REPORT [id number] GERARDO MORALEZ OPERATIVE PROCEDURE IN DETAIL: The patient was brought to the operative suite. General anesthesia was obtained, the patient was prepped and draped. Cutdown right femoral, superficial femoral, profunda femoral and common femoral exposed with severe plaque in the distal common femoral, severe 3-4 mm posterior plaque and circumferential plaque just at the inguinal ligament, but a soft thin walled area on the anterior mid portion of the common femoral. Percutaneous access of the left femoral guidewire passed under fluoroscopic control and dilated to a 7-Cuban sheath, heparin was given at the right side. Percutaneous access guidewire passed, micropuncture technique and an 8-Cuban sheath. On the left side, the snare catheter and snare were placed. On the right side, the exchange catheter was used to place the stiff wire and then balloon dilation of the right common iliac. The sheath was exchanged for the AFX sheath exchange system with some bleeding around the thin part held with direct pressure, but the AFX system would not pass through the distal common iliac. It was removed and an 8 x 80 balloon was inflated, then it passed into the aorta. The sheath was then pulled back into the common iliac and the main body was inserted. Contralateral wire was snared, brought out through the left limb. The device was positioned on the aortic bifurcation, which was confirmed and then the left limb was deployed. The left wire was removed from the main body by advancing a pigtail catheter, which was then placed in position for angiogram. The right limb was then deployed. The suprarenal extension was then placed. Aortogram was performed confirming position of the renals and the suprarenal extension was deployed. A 9 x 40 balloon was used on the right side and the pigtail was reformed and placed back within the aorta. The pigtail was then pulled down to the aortic bifurcation after a final run confirm placement of the endograft system. Sheath and stiff wire removed from the right common femoral. Inflow controlled with a clamp and distal controlled with a vessel loop and interrupted 6-0 closure. Backbleeding was allowed. Flow was restored. Hemostasis was assured. Right iliac angiogram showed no significant stenosis. Left limb of the graft was dilated with a 9 x 40 balloon. Angiogram via the left sheath showed irregular plaque with moderate stenosis just beyond the end of the graft, but above the common iliac bifurcation. Therefore, an 8 x 38 stent was placed and the angiogram via the left femoral sheath was confirmed with no stenosis. Angio-Seal was deployed. Protamine was given. Hemostasis was assured. Right groin was closed after thorough irrigation. The patient was taken to CV ICU in stable condition. The assistant research scientist Dr. Arora performed the left side of the case consisting of snaring the wire, performing the left-sided angioplasties, and deploying the stent on the left. The use of an assistant research scientist surgeon was necessary to lessen the time of general anesthesia. TRANSINT:[id number] Voice Confirmation ID: [id number] DOCUMENT ID: [id number] OPERATIVE REPORT [id number] GERARDO MORALEZ, GAVINO Collins MD at 0926 CC: KAELYN GARCIA [id number] DICTATION DATE: 05/10/18 162 MGMT SPECIALIST: 05/10/18 2135 ADM IN [facility] [address] [place] [address]
--- NOTE | 2018-05-11 09:45 | NUR ---
FC REMOVED AND ALYSSA REMOVED PER ORDERS. DRESSING APPLIED OVER R RADIAL.
--- NOTE | 2018-05-11 12:00 | NUR ---
PT VOIDED 500ML OF CLEAR, YELLOW URINE.
--- NOTE | 2018-05-11 12:30 | NUR ---
MEAL TRAY PROVIDED FOR THE PT.
--- NOTE | 2018-05-11 12:30 | NUR ---
PT AMBULATED WITH SUPERVISION AROUND THE BIG LAP IN THE UNIT WITH NO ISSUES.
--- NOTE | 2018-05-11 13:19 | NUR ---
PT AMBULATED X2 AROUND THE BIG LAP IN THE UNIT. NO ISSUES.
--- NOTE | 2018-05-11 14:48 | MORECARE ---
CASE MANAGEMENT DISCHARGE SUMMARY PATIENT: GERARDO MORALEZ UNIT: [id number] ADM DATE: 05/10/18 AGE: 67 : 50 SEX: M ROOM/BED: D.03 AUTHOR: ADAM,DOC PHYSICIAN: REFERRING PHYSICIAN: JUAN CARLOS RAPHAEL MD DATE OF SERVICE: 05/11/18 Discharge Plan Patient Name: GERARDO MORALEZ Facility: [facility]:[place] : 1950 Planned Disposition: Home Anticipated Discharge Date: Discharge Date: Expected LOS: Initial Reviewer: [email or web address] Initial Review Date: 05/11/2018 Generated: 05/11/18 3:48 pm Comments DCP- Discharge Planning Updated by [email or web address]: Kait Murphy on 05/11/18 1:[address] Patient Name: GERARDO MORALEZ Admission Status: Elective Accout number: [id number] Admission Date: 05-10-2018 : 1950 Admission Diagnosis: Attending: JUAN CARLOS RAPHAEL Current LOS: 1 Anticipated DC Date: Planned Disposition: Home Primary Insurance: [employer] PPO Discharge Planning Comments: CM met with patient and spouse at bedside after obtaining verbal consent. Patient states he plans on returning home after discharge with his . Patient states he will have family transport him home via private vehicle. Patient denies any discharge needs at this time. CM will continue to follow and assist as needed for discharge planning / needs. Film Editor Supervisor: Kait Murphy DCPIA - Discharge Planning Initial Assessment Updated by [email or web address]: Kait Murphy on 05/11/18 2:43 pm * Is the patient Alert and Oriented? Yes * How many steps to enter\exit or inside your home? * PCP [facility] * Pharmacy [facility] * Preadmission Environment Home with Family * ADLs Independent * Equipment None * List name and contact numbers for known caregivers / representatives who currently or will assist patient after discharge: KAYLYN MORALEZ - - [phone] * Verbal permission to speak to the caregivers and representatives has been obtained from the patient. Yes * Community resources currently utilized None * Additional services required to return to the preadmission environment? No * Can the patient safely return to the preadmission environment? Yes * Has this patient been hospitalized within the prior 30 days at any hospital? No Patient Name: GERARDO MORALEZ Page [id number] at 1448 All edits/amendments must be made on the electronic document DICTATION DATE: 05/11/181447 HOT METAL MIXER OPERATOR: IRMA 05/11/181447 RPT#: [id number] DC DATE: STATUS: ADM IN [facility] [address] [place] [address] END OF REPORT
--- NOTE | 2018-05-11 17:59 | NUR ---
MEAL TRAY PROVIDED FOR THE PT. PT DENIES PAIN/NEEDS AT THIS TIME. CALL LIGHT IN REACH. WILL CONT POC.
--- NOTE | 2018-05-11 19:30 | NUR ---
REPORT RECEIVED, INITIAL ASSESSMENT COMPLETE PER FLOW SHEET, PT AAOx4, DENIES PAIN AND NEEDS AT THIS TIME, VSS, WILL CONTINUE TO ASSESS
--- NOTE | 2018-05-11 21:00 | NUR ---
PT IN NO ACUTE DISTRESS, DENIES NEEDS, VSS, PT ABLE TO REPOSITION SELF
--- NOTE | 2018-05-11 23:00 | NUR ---
REASSESSMENT COMPLETED PER FLOW SHEET, NO ACUTE CHANGES NOTED, PT COMFORTABLY RESTING IN BED, VSS, DENIES NEEDS
[2018-05-12] VITALS (9 sets, daily range): BP systolic 128–145; BP diastolic 61–74
--- NOTE | 2018-05-12 01:00 | NUR ---
PT SLEEPING, NO S/S OF DISTRESS NOTED, VSS, WILL CONTINUE TO ASSESS
--- NOTE | 2018-05-12 03:00 | NUR ---
REASSESSMENT COMPLETED PER FLOW SHEET, NO ACUTE CHANGES NOTED, VSS, WILL CONTINUE TO ASSESS
--- NOTE | 2018-05-12 04:00 | NUR ---
PT OOB TO BATHROOM, X1 BM NOTED, VSS, NO OTHER NEEDS AT THIS TIME
--- NOTE | 2018-05-12 07:00 | NUR ---
REPORT RECEVIED FROM THE OFF GOING RN. SEE ASSESSMENT IN THE PTS FLOW SHEET. NO C/O PAIN. NO NEEDS VOICED AT THIS TIME. PT AMBULATED UP AND DOWN THE [place] WAY WITH A NORMAL STEADY GAIT. NO ISSUES. VSS ON THE MONITOR. DR RAPHAEL AT THE PTS BEDSIDE AND REMOVED THE DRESSING FOR THE LEFT GROIN. INCISION WELL APPROXIMATED WITH NO DRAINAGE NOTED. NO S/SX OF INFECTION NOTED. BREAKFAST TRAY PROVIDED FOR THE PTS. CALL LIGHT IN REACH. WILL CONT POC.
--- NOTE | 2018-05-12 07:46 | NUR ---
DR RAPHAEL AT THE PTS BEDSIDE. DR RAPHAEL EXPLAINED WHAT MEDICATIONS HE NEEDS TO TAKE AT HOME. PT AND PTS UNDERSTANDS DISCHARGE PLAN MEDS.
--- NOTE | 2018-05-12 08:12 | NUR ---
RIGHT ANKLE DRESSING CHANGED. SEE FLOW SHEET FOR WOUND DIMENSIONS. WOUND CLEANDED WITH WOUND SENIOR BUDGET ANALYST. ADAPDIC APPLIED. SECURED WITH 4X4'S. BANDAID APPLIED OVER SMALLER WOUND.
--- NOTE | 2018-05-12 08:30 | NUR ---
PT LYING IN BED. CENTRAL LINE DC PER ORDRES. CATHETER TIP INTACT. DRESSING APPLIED. NO HEMATOMA/BLEEDING NOTED. INSTRUCTED THE PT TO LIE IN BED FOR 30 MINUTES. PT VERBALIZED INSTRUCTIONS.
[2018-05-12] MEDS ORDERED: PLAVIX75 MG PO (08:31)
--- NOTE | 2018-05-12 10:25 | NUR ---
DISCHARGE INSTRUCTION WENT OVER WITH THE PT AND HIS . VSS. PT DENIES PAIN/NEEDS AT THIS TIME. THE CALLED A [employer] [facility] FOR THE PT AND WITH . THEY BOTH LEFT THE HOSPITAL WITH NO S/SX OF DISTRESS/DISCOMFORT. CALL BELONINGS ACCOUNTED FOR.
--- NOTE | 2018-05-12 14:21 | MORECARE ---
CASE MANAGEMENT DISCHARGE SUMMARY PATIENT: GERARDO MORALEZ UNIT: [id number] ADM DATE: 05/10/18 AGE: 67 : 50 SEX: M ROOM/BED: D.03 AUTHOR: ADAM,DOC PHYSICIAN: REFERRING PHYSICIAN: JUAN CARLOS RAPHAEL MD DATE OF SERVICE: 05/12/18 Discharge Plan Patient Name: GERARDO MORALEZ Facility: [facility]:[place] : 1950 Planned Disposition: Home Anticipated Discharge Date: Discharge Date: 05/12/2018 Expected LOS: Initial Reviewer: [email or web address] Initial Review Date: 05/11/2018 Generated: 05/12/18 3:21 pm Comments DCP- Discharge Planning Updated by [email or web address]: Kait Murphy on 05/11/18 1:[address] Patient Name: GERARDO MORALEZ Admission Status: Elective Accout number: [id number] Admission Date: 05-10-2018 : 1950 Admission Diagnosis: Attending: JUAN CARLOS RAPHAEL Current LOS: 1 Anticipated DC Date: Planned Disposition: Home Primary Insurance: [employer] PPO Discharge Planning Comments: CM met with patient and spouse at bedside after obtaining verbal consent. Patient states he plans on returning home after discharge with his . Patient states he will have family transport him home via private vehicle. Patient denies any discharge needs at this time. CM will continue to follow and assist as needed for discharge planning / needs. Sound Art Instructor: Kait Murphy DCPIA - Discharge Planning Initial Assessment Updated by [email or web address]: Kait Murphy on 05/11/18 2:43 pm * Is the patient Alert and Oriented? Yes * How many steps to enter\exit or inside your home? * PCP [facility] * Pharmacy [facility] * Preadmission Environment Home with Family * ADLs Independent * Equipment None * List name and contact numbers for known caregivers / representatives who currently or will assist patient after discharge: KAYLYN MORALEZ - - [phone] * Verbal permission to speak to the caregivers and representatives has been obtained from the patient. Yes * Community resources currently utilized None * Additional services required to return to the preadmission environment? No * Can the patient safely return to the preadmission environment? Yes * Has this patient been hospitalized within the prior 30 days at any hospital? No Last DP export: 05/11/18 1:48 pm Patient Name: GERARDO MORALEZ Page [id number] at 1421 All edits/amendments must be made on the electronic document DICTATION DATE: 05/12/181419 LONGWALL SHEARER OPERATOR: IRMA 05/12/18 142 RPT#: [id number] DC DATE:05/12/18 STATUS: DIS IN [facility] [address] [place] [address] END OF REPORT
== END 2018-05-12 10:31 | disposition home or self-care (01) | DRG 269 ==
LOC: D.CVICU 05-10 07:35 → D.SDCHOLD 05-10 07:35 → D.CVICU 05-10 15:04
PROVIDERS: Internal Medicine Cardiovascular Disease; ADMIT Thoracic Surgery (Cardiothoracic Vascular Surgery)
PROC: 047D3DZ Dilation of Left Common Iliac Artery with Intraluminal Device, Percutaneous Approach (ICD-10-PCS; 2018-05-10)
PROC: 04V03DZ Restriction of Abdominal Aorta with Intraluminal Device, Percutaneous Approach (ICD-10-PCS; principal; 2018-05-10 10:45)
DX: I71.4 Abdominal aortic aneurysm, without rupture (principal); I77.2 Rupture of artery; I77.1 Stricture of artery; I73.9 Peripheral vascular disease, unspecified

== ENCOUNTER → 2018-06-07 09:04 | Outpatient (CLI) | payer OTHER ==
[2018-05-11 10:01] VITALS: BMI 27.6
[~2018-06-07 09:04] MED LIST changes: +KEFLEX500 MG PO; +METOPROLOL TART25 MG PO; +PLAVIX75 MG PO
== END | disposition home or self-care (01) ==
LOC: D.CT 09:04
PROVIDERS: ATTEND Thoracic Surgery (Cardiothoracic Vascular Surgery)
DX: I71.4 Abdominal aortic aneurysm, without rupture (principal)

== ENCOUNTER 2018-06-09 18:03 | Emergency (ER) | payer OTHER ==
[~2018-06-09] VITALS: Ht 175.3 cm; Wt 90.9 kg
[~2018-06-09 18:03] MED LIST changes: -KEFLEX500 MG PO
[2018-06-09 18:11] VITALS: Ht 175.3 cm; Wt 90.9 kg
[2018-06-09 18:52] LABS: HEMATOCRIT 38.5 % (42.0-54.0); HEMOGLOBIN 13.2 g/dL (13.5-17.5); MCH 30.1 pg (26.0-34.0); MCHC 34.3 g/dL (31.0-37.0); MCV 87.9 fL (80.0-100.0); MEAN PLATELET VOLUME 9.8 fL (7.4-10.4); PLATELET COUNT 236 10x3/uL (130-400); RBC 4.38 10x6/uL (4.20-6.10); RDW 13.4 % (11.5-14.5)
[2018-06-09 18:53] LABS: APTT 30.7 SECONDS (22.8-39.4); INR 0.98 (0.85-1.17); PROTIME 12.5 SECONDS (11.6-15.0)
[2018-06-09 18:56] LABS: APPEARANCE TURBID (CLEAR); BILIRUBIN NEGATIVE (NEGATIVE); COLOR RED (YELLOW); GLUCOSE NEGATIVE (NEGATIVE); KETONE NEGATIVE (NEGATIVE); NITRITE NEGATIVE (NEGATIVE); PROTEIN 3+ mg/dL (NEGATIVE); UROBILINOGEN NORMAL (NORMAL)
[2018-06-09 18:59] LABS: BACTERIA MODERATE /hpf (NONE SEEN); EPITHELIAL CELLS OCC /hpf (0-5); RED CELLS - URINE >50 /hpf (0-5); WHITE CELLS - URINE 25-50 /hpf (0-5)
[2018-06-09 19:04] LABS: ANION GAP 18.4 mmol/L (8-16); BILIRUBIN - TOTAL 0.71 mg/dL (0.2-1.3); CARBON DIOXIDE 24.4 mmol/L (21.0-32.0); CREATININE - SERUM 1.1 mg/dL (0.6-1.3); POTASSIUM - SERUM 3.8 mmol/L (3.5-5.1); PROTEIN - SERUM 7.9 g/dL (6.4-8.2)
[2018-06-09 19:38] LABS: LYMPHOCYTES 6 % (15-50); MONOCYTES 5 % (2-11); NEUTROPHILS 80 % (40-80); PLATELET ESTIMATE NORMAL
[2018-06-09] MEDS ORDERED: KEFLEX500 MG PO (19:54)
[2018-06-09 20:30] LABS: LIPASE 467 U/L (73-393); PRO BNP 290 pg/mL (0-125)
[2018-06-09 20:31] LABS: TROPONIN-I < 0.017 ng/mL (0.000-0.060)
[2018-06-09 20:39] VITALS: BP 173/90
== END 2018-06-09 20:41 | disposition home or self-care (01) ==
LOC: D.ER 18:03
PROVIDERS: Family Medicine
DX: N30.90 Cystitis, unspecified without hematuria (principal); Z98.890 Other specified postprocedural states